=== PATIENT | female | born 1940 | race Caucasian/White ===

== ENCOUNTER 2019-07-21 18:05 | Emergency (ER) | payer MEDICARE ==
[2019-07-21 18:20] VITALS: BP 139/69
--- NOTE | 2019-07-21 18:33 | UC ---
Bite Injury/Animal HPI - HPI Summary HPI Summary: 79-year-old woman comes in with a chief complaint of a tick bite to the left forearm. She noticed it just prior to arrival attempted to get out with some tweezers leaving some of tick in her left forearm. Patient is not sure how long the tick was in. No rash no fevers no chills feels well otherwise. - History of Current Complaint Chief Complaint: UCBiteInjury Stated Complaint: TICK Time Seen by Provider: 07/21/19 18:10 Pain Intensity: 0 - Allergies/Home Medications Allergies/Adverse Reactions: Allergies Allergy/AdvReac Type Severity Reaction Status Date / Time bee venom protein (honey bee) Allergy Redness Verified 07/21/19 18:13 and Swelling Home Medications: Home Medications Atenolol TAB* [Tenormin TAB* 25 MG] 25 mg PO DAILY 07/21/19 [History Confirmed 07/21/19] DOXYcycline CAP(*) [DOXYcycline 100MG CAP(*)] 200 mg PO ONCE #2 cap 07/21/19 [Rx ] Garlic 1,000 mg PO BID 07/21/19 [History Confirmed 07/21/19] Mesalamine [Mesalamine Dr] 1.2 gm PO BID 07/21/19 [History Confirmed 07/21/19] Niacin 500 mg PO BID 07/21/19 [History Confirmed 07/21/19] [place]-3/Dha/Epa/Fish Oil [Fish Oil 1,000 mg Softgel] 1,000 mg PO DAILY 07/21/19 [History Confirmed 07/21/19] Propranolol/Hydrochlorothiazid [Propranolol/Hydrochloroth] 1 tab PO DAILY [History Confirmed 07/21/19] Vitamin THERAPEUTIC TAB* [Theragran TAB*] 1 tab PO DAILY 07/21/19 [History Confirmed 07/21/19] PMH/Surg Hx/FS Hx/Imm Hx Previously Healthy: Yes Cardiovascular History: Hypertension - Surgical History Surgical History: Yes Surgery Procedure, Year, and Place: Left Cataract Extraction; Vericose vein Stripping - Family History Known Family History: Positive: Non-Contributory - Social History Alcohol Use: None Substance Use Type: None Smoking Status (MU): Former Smoker Amount Used/How Often: ~1/2 PPD Length of Time of Smoking/Using Tobacco: 30 Years When Did the Patient Quit Smoking/Using Tobacco: ~ or Review of Systems All Other Systems Reviewed And Are Negative: Yes Constitutional: Positive: Negative Skin: Positive: Other - SEE HPI Eyes: Positive: Negative ENT: Positive: Negative Respiratory: Positive: Negative Neurovascular: Positive: Negative Musculoskeletal: Positive: Negative Neurological/Mental Status: Positive: Negative Psychological: Positive: Negative Is Patient Immunocompromised?: No Physical Exam Triage Information Reviewed: Yes Appearance: Well-Appearing, No Pain Distress, Well-Nourished Vital Signs: Initial Vital Signs Temp 98.4 F 07/21/19 18:11 Pulse 66 07/21/19 18:11 Resp 16 07/21/19 18:11 BP 139/69 07/21/19 18:11 Pulse Ox 100 07/21/19 18:11 Vital Signs Reviewed: Yes Eye Exam: Normal Eyes: Positive: Conjunctiva Clear Neck: Positive: Supple Respiratory: Positive: No respiratory distress Musculoskeletal: Positive: Strength Intact, ROM Intact Neurological: Positive: Alert Psychological: Positive: Age Appropriate Behavior Skin: Positive: Other - Left forearm there is a 3 mm dark foreign body consistent with portion of the tick body. I was able to remove most of the however 1 mm dark area does remain. Bite Injury Course/Dx - Course Course Of Treatment: Patient's had a tick bite with unknown duration of the tick being in her. No signs of Lyme disease at this time. We'll treat with doxycycline 200 mg single dose. Patient's to get reevaluated if she develops a bull's-eye rash or cellulitis or any symptoms of Lyme disease or any other concern. - Differential Dx/Diagnosis Provider Diagnosis: Tick bite of left forearm Discharge ED - Sign-Out/Discharge Documenting (check all that apply): Patient Departure All imaging exams completed and their final reports reviewed: No Studies - Discharge Plan Condition: Stable Disposition: HOME Prescriptions: DOXYcycline CAP(*) [DOXYcycline 100MG CAP(*)] 200 mg PO ONCE #2 cap Patient Education Materials: Tick Bite (ED) Referrals: Isabela Mays NP [Primary Care Provider] - Additional Instructions: FOLLOW UP WITH YOUR DOCTOR IF NOT COMPLETELY IMPROVED. GET REEVALUATED IF NOT IMPROVING OR WORSE; BULLS EYE RASH, RASH, SYMPTOMS OF LYME DISEASE OR ANY QUESTIONS OR CONCERNS. - Billing Disposition and Condition Condition: STABLE Disposition: Home
== END 2019-07-21 18:38 | disposition home or self-care (01) ==
LOC: UCCORT 18:05
DX: S50.862A Insect bite (nonvenomous) of left forearm, initial encounter (principal); W57.XXXA Bitten or stung by nonvenomous insect and other nonvenomous arthropods, initial encounter; Y92.9 Unspecified place or not applicable; I10 Essential (primary) hypertension; Z79.899 Other long term (current) drug therapy; Z91.030 Bee allergy status; Z87.891 Personal history of nicotine dependence
CPT/HCPCS: 99202; G0463